=== PATIENT | male | born 1940 | race Asian ===

== ENCOUNTER 2018-03-07 05:59 | Observation (INO) | payer MEDICARE, MEDICAID ==
[2018-03-07] VITALS (14 sets, daily range): BP systolic 117–185; BP diastolic 63–82
[~2018-03-07] VITALS: Ht 157.5 cm; Wt 62.8 kg
[~2018-03-07 05:59] MED LIST: SODIUM CHLORIDE 0.9% 1,000 ML IV ONE
[2018-03-07] MEDS ORDERED: MIDAZOLAM HCL 2 MG/2 ML VIAL IVP ONE (06:00)
[2018-03-07] MEDS ORDERED: PROPOFOL 1% 20 ML VIAL IVP ONE (06:00)
[2018-03-07] MEDS ORDERED: FentaNYL CITRATE-PF 100 MCG/2 ML VIAL IVP ONE (06:00)
[2018-03-07] MEDS ORDERED: LIDOCAINE HCL/PF 2% 5 ML VIAL IM ONE (06:00)
[2018-03-07] MEDS ORDERED: TADA20TA PO (06:12)
[2018-03-07] MEDS ORDERED: CARV3 PO (06:12)
[2018-03-07] MEDS ORDERED: AMLO2.5T PO (06:12)
[2018-03-07] MEDS ORDERED: RANO500T3 PO (06:12)
[2018-03-07] MEDS ORDERED: CLOP75 PO (06:12)
[2018-03-07] MEDS ORDERED: LOSA50TA37 PO (06:12)
[2018-03-07] MEDS ORDERED: SIMV-260 PO (06:12)
[2018-03-07] MEDS ORDERED: LIDOCAINE HCL/PF 1% 30 ML VIAL ONE (07:18)
[2018-03-07] MEDS ORDERED: SODIUM BICARBONATE 50 MEQ/50 ML VIAL ONE (07:18)
[2018-03-07 07:35] LABS: HEMATOCRIT 39.9 % (41-53); HEMOGLOBIN 13.5 g/dL (13.5-17.5); MEAN CORPUSCULAR HEMOGLOBIN 31.9 pg (26.0-34.0); MEAN CORPUSCULAR HGB CONC 33.7 G/dL (31.0-37.0); MEAN CORPUSCULAR VOLUME 95 fL (80-100); PLATELET COUNT (AUTO) 177 K/uL (150-450); RED BLOOD CELL COUNT(AUTO) 4.22 MIL/uL (4.50-5.90); RED CELL DISTRIBUTION WIDTH 12.7 % (11.5-14.5)
[2018-03-07 07:41] LABS: ANION GAP 8 mmol/L (8-16); CARBON DIOXIDE 26 mmol/L (22-29); CHLORIDE 105 mmol/L (98-107); CREATININE 0.98 mg/dL (0.60-1.30); GLOMERULAR FILTR. RATE CALC > 60 mL/min (>60); GLUCOSE,RANDOM 105 mg/dL (70-110); POTASSIUM 3.8 mmol/L (3.5-5.1); SODIUM SERUM 139 mmol/L (136-145); UREA NITROGEN, BLOOD 14 mg/dL (7-18)
[2018-03-07 07:43] LABS: PROTHROMBIN TIME 10.3 SEC (9.4-11.6)
[2018-03-07 08:52] LABS: BAND NEUTROPHILS % (MANUAL) 1 % (0-5); EOSINOPHILS % (MANUAL) 1 % (1-6); LYMPHOCYTES % (MANUAL) 39 % (22-44); MONOCYTES % (MANUAL) 11 % (2-9); SEGMENTED NEUTROPHILS % 48 % (40-70)
[2018-03-07] MEDS ORDERED: SODIUM CHLORIDE 0.9% 500 ML IV ONE (08:52)
[2018-03-07] MEDS ORDERED: LIDOCAINE 1% 30 ML/SOD BICARB 8.4% 4 ML SQ ONE (09:00)
[2018-03-07] MEDS: AmLODIPine BESYLATE 2.5 MG TABLET PO SCH (10:00)
[2018-03-07] MEDS: LOSARTAN POTASSIUM 50 MG TABLET PO SCH (10:49)
[2018-03-07] MEDS: CARVEDILOL 3.125 MG TABLET PO SCH (10:51)
[2018-03-07] MEDS ORDERED: SODIUM CHLORIDE 0.9% 100 ML ONE (14:55)
[2018-03-07] MEDS: CeFAZolin 1 GM/DEXTROSE 50 ML IV SCH ×2 (15:02→21:36)
[2018-03-07] MEDS ORDERED: SIMVASTATIN 20 MG TABLET PO SCH (21:00)
[2018-03-07] MEDS: RANOLAZINE 500 MG SR TABLET PO SCH (21:36)
[2018-03-08] MEDS: CeFAZolin 1 GM/DEXTROSE 50 ML IV SCH (03:07)
[2018-03-08 05:03] VITALS: BP 126/72
[2018-03-08 07:40] VITALS: BP 132/19
[2018-03-08] MEDS: RANOLAZINE 500 MG SR TABLET PO SCH (08:03)
[2018-03-08] MEDS: AmLODIPine BESYLATE 2.5 MG TABLET PO SCH (08:03)
[2018-03-08] MEDS: CARVEDILOL 3.125 MG TABLET PO SCH (08:03)
[2018-03-08] MEDS: LOSARTAN POTASSIUM 50 MG TABLET PO SCH (08:03)
[2018-03-08 11:39] VITALS: BP 126/66
== END 2018-03-08 14:00 | disposition home or self-care (01) ==
LOC: INTOOBSV 05:59 → 5N 05:59
PROVIDERS: ADMIT Internal Medicine Cardiovascular Disease; ATTEND Internal Medicine Cardiovascular Disease
DX: I49.5 Sick sinus syndrome (principal); R55 Syncope and collapse; I46.9 Cardiac arrest, cause unspecified; R42 Dizziness and giddiness; I44.7 Left bundle-branch block, unspecified; I25.9 Chronic ischemic heart disease, unspecified; I11.9 Hypertensive heart disease without heart failure; E11.8 Type 2 diabetes mellitus with unspecified complications; R09.89 Other specified symptoms and signs involving the circulatory and respiratory systems; I20.9 Angina pectoris, unspecified; E78.00 Pure hypercholesterolemia, unspecified; L30.9 Dermatitis, unspecified; I25.2 Old myocardial infarction; Z86.79 Personal history of other diseases of the circulatory system; Z95.1 Presence of aortocoronary bypass graft
CPT/HCPCS: 33208; 36415; 71045; 71046; 76000; 80048; 85007; 85027; 85610; 87081; 93005; 96365; 96375; 96376; C1785; C1892; C1899; G0378 ×2; J0690 ×2; J2250; J2704; J3010; J3490 ×3; J7030; J7050